=== PATIENT | male | born 1990 | race Hispanic/Latino ===

== ENCOUNTER 2017-03-02 13:41 | Inpatient (IN) | payer MEDICAID ==
[~2017-03-02] VITALS: Ht 165.1 cm; Wt 65.8 kg
[2017-03-02] MEDS ORDERED: Famotidine 20 MG/ 2ML VIAL IVP ONE ×2 (13:45)
[2017-03-02] MEDS ORDERED: LORazepam Inj 2mg/ml 1ml IV ONE (14:00)
--- NOTE | 2017-03-02 14:00 | Emergency Room Report ---
History of Present Illness General Chief Complaint: Gastrointestinal Bleed Source: Patient, EMS Present Illness HPI Patient is a 26-year-old male who presented after increased emesis the patient was recently drinking heavy alcohol. He reports vomiting blood. Patient prior history of alcohol abuse. The patient stated that he had been having some bright red blood. As noted be hypotensive by EMS. The patient started on IV fluids. Allergies: Coded Allergies: No Known Allergies (Unverified , 03/02/17) Nursing Documentation-[facility] Past Medical History: No History, Except For History Of Psychiatric Problem: Yes - etoh abuse Review of Systems All Other Systems: negative except mentioned in HPI Physical Exam Vital Signs Date Time Temp Pulse Resp B/P Pulse Ox O2 Delivery O2 Flow Rate FiO2 03/02/17 13:35 98.2 108 20 88/63 98 Room Air Sp02 EP Interpretation: reviewed, normal General Appearance: normal inspection, alert, moderate distress Head: atraumatic ENT: normal ENT inspection, hearing grossly normal, normal voice Neck: normal inspection, full range of motion, supple, no bony tend Respiratory: normal inspection, lungs clear, normal breath sounds, no respiratory distress, no retraction, no wheezing Cardiovascular #1: no edema, tachycardia Gastrointestinal: normal inspection, normal bowel sounds, non tender, soft, no guarding, no hernia Genitourinary: no CVA tenderness Musculoskeletal: normal inspection, back normal, normal range of motion Neurologic: normal inspection, alert, oriented x3, responsive, economic history teacher III-XII nml as tested, motor strength/tone normal, speech normal Psychiatric: normal inspection, judgement/insight normal, mood/affect normal Skin: normal inspection, normal color, no rash, other - tremor Procedures Critical Care Time Critical Care Time Patient had a critical medical condition which untreated could potentially result in life or limb threatening injury. Total critical care time excluding procedures approximately 45 minutes. Medical Decision Making Diagnostic Impression: Primary Impression: Gastrointestinal hemorrhage Additional Impression: Anemia ER Course Patient presented for reported hematemesis. The differential diagnosis included but was not limited to ulcer, diverticulosis, aortic aneurysm, arteriovenous formation, coagulopathy, cancer among others. Because of complexity of patient' s case laboratory testing and imaging studies were ordered.The patient was given IV Protonix as well as Pepcid. The patient noted to have large amount melanotic stool. Initial hemoglobin was noted to be markedly anemic.The patient is given Ativan for presumed alcohol withdrawal.The patient was discussed with Dr. Burton for inpatient management of GI bleeding. The patient was consented and crossmatch for blood. Patient was given IV fluids as well as blood. Labs Test 03/02/17 14:00 White Blood Count 11.0 K/UL (4.8-10.8) Red Blood Count 2.54 M/UL (4.70-6.10) Hemoglobin 7.9 G/DL (14.2-18.0) Hematocrit 23.8 % (42.0-52.0) Mean Corpuscular Volume 94 FL (80-99) Mean Corpuscular Hemoglobin 31.0 PG (27.0-31.0) Mean Corpuscular Hemoglobin Concent 33.0 G/DL (32.0-36.0) Red Cell Distribution Width 12.1 % (11.6-14.8) Platelet Count 248 K/UL (150-450) Mean Platelet Volume 6.5 FL (6.5-10.1) Neutrophils (%) (Auto) % (45.0-75.0) Lymphocytes (%) (Auto) % (20.0-45.0) Monocytes (%) (Auto) % (1.0-10.0) Eosinophils (%) (Auto) % (0.0-3.0) Basophils (%) (Auto) % (0.0-2.0) Prothrombin Time 10.5 SEC (9.30-11.50) Prothromb Time International Ratio 1.0 (0.9-1.1) Activated Partial Thromboplast Time 20 SEC (23-33) Sodium Level 136 mEQ/L (135-145) Potassium Level 3.5 mEQ/L (3.4-4.9) Chloride Level 99 mEQ/L (98-107) Carbon Dioxide Level 27 mEQ/L (20-30) Anion Gap 10 (5-15) Blood Urea Nitrogen 32 mg/dL (7-23) Creatinine 0.7 mg/dL (0.7-1.2) Estimat Glomerular Filtration Rate > 60 mL/min (>60) Glucose Level 163 mg/dL (74-106) Calcium Level 8.4 mg/dL (8.6-10.2) Total Bilirubin 0.7 mg/dL (0.0-1.2) Aspartate Amino Transf (AST/SGOT) 18 U/L (5-40) Alanine Aminotransferase (ALT/SGPT) 29 U/L (3-41) Alkaline Phosphatase 46 U/L (40-129) Total Protein 6.0 g/dL (6.6-8.7) Albumin 4.0 g/dL (3.5-5.2) Globulin 2.0 g/dL Albumin/Globulin Ratio 2.0 (1.0-2.7) Lipase 13 U/L (< 60) Serum Alcohol < 10 mg/dL EKG Diagnostic Results Rate: normal Rhythm: NSR ST Segments: no acute changes Rhythm Strip Diag. Results EP Interpretation: yes Rhythm: NSR, no PVC's, no ectopy Last Vital Signs Date Time Temp Pulse Resp B/P Pulse Ox O2 Delivery O2 Flow Rate FiO2 03/02/17 13:35 98.2 108 20 88/63 98 Room Air Status: unchanged Disposition: ADMITTED INPATIENT Condition: Jamshid Llamas Mar 02, 2017 14:00
[2017-03-02 14:17] LABS: MEAN CORPUSCULAR VOLUME 94 FL (80-99); MEAN PLATELET VOLUME 6.5 FL (6.5-10.1); PLATELET COUNT 248 K/UL (150-450); RED BLOOD COUNT 2.54 M/UL (4.70-6.10); RED CELL DISTRIBUTION WIDTH 12.1 % (11.6-14.8)
[2017-03-02 14:28] LABS: ALCOHOL < 10 mg/dL; LIPASE 13 U/L (< 60)
[2017-03-02 14:29] LABS: ALANINE AMINOTRANSFERASE 29 U/L (3-41); ANION GAP 10 (5-15); ASPARTATE AMINO TRANSFERASE 18 U/L (5-40); CALCIUM 8.4 mg/dL (8.6-10.2); CARBON DIOXIDE 27 mEQ/L (20-30); CHLORIDE 99 mEQ/L (98-107); CREATININE 0.7 mg/dL (0.7-1.2); GLOMERULAR FILTRATION RATE > 60 mL/min (>60); HEMOLYSIS 5; POTASSIUM 3.5 mEQ/L (3.4-4.9); SODIUM 136 mEQ/L (135-145)
[2017-03-02 14:32] LABS: PROTHROMBIN TIME 10.5 SEC (9.30-11.50)
[2017-03-02] MEDS ORDERED: Pantoprazole Inj IVP ONE (14:45)
[2017-03-02 14:51] LABS: BAND NEUTROPHILS % (MANUAL) 1 % (0-8); BASOPHILS % (MANUAL) 1 % (0-2); LYMPHOCYTES % (MANUAL) 14 % (20-45); NEUTROPHILS % (MANUAL) 80 % (45-75); TOTAL CELLS COUNTED 100
[2017-03-02 14:52] LABS: EOSINOPHILS % (MANUAL) 0 % (0-3); PLATELET ESTIMATE ADEQUATE; PLATELET MORPHOLOGY NORMAL
[2017-03-02 14:56] LABS: STOMATOCYTES OCCASIONAL
[2017-03-02 14:57] LABS: HYPOCHROMASIA 1+
[2017-03-02] MEDS ORDERED: Nitroglycerin Subl 0.4mg tab (Bottle Of 25) SL PRN (15:30)
[2017-03-02] MEDS ORDERED: Morphine Sulfate 2mg/ml Inj IVP PRN (15:30)
[2017-03-02] MEDS ORDERED: Mylanta II UD 30ml ORAL PRN (15:30)
[2017-03-02] MEDS ORDERED: Miralax 17gm pkt ORAL PRN (15:30)
[2017-03-02] MEDS ORDERED: Phytonadione 10 MG in D5W 55 ML IVPB ONE (16:00)
[2017-03-02 16:07] VITALS: BP 101/58
[2017-03-02 16:30] VITALS: BP 111/60
[2017-03-02] MEDS: D5NS 1,000 ML IV SCH (16:45)
[2017-03-02 18:34] LABS: MEAN CORPUSCULAR HEMOGLOBIN 32.5 PG (27.0-31.0); MEAN CORPUSCULAR HGB CONC 34.3 G/DL (32.0-36.0); MEAN CORPUSCULAR VOLUME 95 FL (80-99); MEAN PLATELET VOLUME 6.8 FL (6.5-10.1); PLATELET COUNT 208 K/UL (150-450); RED BLOOD COUNT 2.13 M/UL (4.70-6.10); RED CELL DISTRIBUTION WIDTH 12.2 % (11.6-14.8); WHITE BLOOD COUNT 8.2 K/UL (4.8-10.8)
[2017-03-02 20:00] VITALS: BP 101/69
[2017-03-02 20:19] LABS: BAND NEUTROPHILS % (MANUAL) 1 % (0-8); LYMPHOCYTES % (MANUAL) 8 % (20-45); NEUTROPHILS % (MANUAL) 90 % (45-75); NUCLEATED RED BLOOD CELLS 3 /100 WBC; TOTAL CELLS COUNTED 100
[2017-03-02 20:24] LABS: BASOPHILS % (MANUAL) 0 % (0-2); EOSINOPHILS % (MANUAL) 0 % (0-3); PLATELET ESTIMATE ADEQUATE
[2017-03-02 20:25] LABS: PLATELET MORPHOLOGY NORMAL
[2017-03-03] VITALS (11 sets, daily range): BP systolic 96–113; BP diastolic 48–74
[2017-03-03] MEDS: D5NS 1,000 ML IV SCH ×3 (03:02→23:14)
[2017-03-03 06:33] LABS: BASOPHILS % (AUTO) 0.7 % (0.0-2.0); EOSINOPHILS % (AUTO) 1.1 % (0.0-3.0); LYMPHOCYTES % (AUTO) 24.3 % (20.0-45.0); MEAN CORPUSCULAR HEMOGLOBIN 32.5 PG (27.0-31.0); MEAN CORPUSCULAR HGB CONC 34.5 G/DL (32.0-36.0); MEAN CORPUSCULAR VOLUME 94 FL (80-99); MEAN PLATELET VOLUME 6.5 FL (6.5-10.1); MONOCYTES % (AUTO) 9.6 % (1.0-10.0); NEUTROPHILS % (AUTO) 64.3 % (45.0-75.0); PLATELET COUNT 176 K/UL (150-450); RED BLOOD COUNT 2.93 M/UL (4.70-6.10); RED CELL DISTRIBUTION WIDTH 12.3 % (11.6-14.8); WHITE BLOOD COUNT 6.5 K/UL (4.8-10.8)
[2017-03-03 06:43] LABS: PROTHROMBIN TIME 10.1 SEC (9.30-11.50)
[2017-03-03 06:55] LABS: ALANINE AMINOTRANSFERASE 24 U/L (3-41); ALBUMIN/GLOBULIN RATIO 1.9 (1.0-2.7); AMYLASE 36 U/L (10-110); ANION GAP 7 (5-15); ASPARTATE AMINO TRANSFERASE 26 U/L (5-40); CALCIUM 8.3 mg/dL (8.6-10.2); CARBON DIOXIDE 27 mEQ/L (20-30); CHLORIDE 106 mEQ/L (98-107); CREATININE 0.6 mg/dL (0.7-1.2); GLOMERULAR FILTRATION RATE > 60 mL/min (>60); HEMOLYSIS 6; LIPASE 28 U/L (< 60); POTASSIUM 3.8 mEQ/L (3.4-4.9); SODIUM 140 mEQ/L (135-145); TOTAL PROTEIN 5.3 g/dL (6.6-8.7)
[2017-03-03] MEDS ORDERED: LORazepam Inj 2mg/ml 1ml IV PRN (08:15)
[2017-03-03] MEDS ORDERED: chlordiazePOXIDE 25mg Cap ORAL PRN (11:45)
--- NOTE | 2017-03-03 11:54 | History & Physical ---
History and Physical History & Physicial Kalin Burton MD Mar 03, 2017 11:54
[2017-03-03] MEDS ORDERED: NS 550ML IV ONE (12:10)
--- NOTE | 2017-03-03 12:25 | Pre-Procedure Note/Attestation ---
Pre-Procedure Note/Attestation Complete Prior to Procedure Planned Procedure: not applicable Procedure Narrative: egd Indications for Procedure Pre-Operative Diagnosis: gib Attestation I attest that I discussed the nature of the procedure; its benefits; risks and complications; and alternatives (and the risks and benefits of such alternatives ), prior to the procedure, with the patient (or the patient's legal construction sales representative). I attest that, if there was a reasonable possibility of needing a blood transfusion, the patient (or the patient's legal construction sales representative) was given the [facility] standardized written summary, pursuant to the Dany Alberto Blood Safety Act ([place] Health and Safety Code # 1645, as amended). I attest that I re-evaluated the patient just prior to the surgery and that there has been no change in the patient's H&P, except as documented below: WEST PORTER Mar 03, 2017 12:25
[2017-03-03] MEDS ORDERED: Lidocaine 1% MPF 10mg/ml 5ml ONE (12:30)
[2017-03-03] MEDS ORDERED: Propofol 10mg/ml 20ml IV ONE (12:30)
--- NOTE | 2017-03-03 12:48 | Endoscopy Procedure Note ---
Endoscopy Procedure Note Indication for Procedure: gib Procedures Performed: EGD Operative Findings/Diagnosis: deulafoy Specimen: yes Pt Tolerated Procedure Well: Yes Estimated Blood Loss: none Anesthesiologist: charley Anesthesia: MAC Implant(s) used?: No 50 yrs or older w/o bx or poly: Not Applicable 10yrs. F/U not recommended: Not Applicable WEST PORTER Mar 03, 2017 12:48
--- NOTE | 2017-03-03 12:50 | Anethesia Preoperative Eval ---
Anesthesia Pre-op PMH/ROS General Date of Evaluation: Mar 03, 2017 Time of Evaluation: 12:20 Anesthesiologist: deepali ASA Score: ASA 2 Mallampati Score Class I : Soft palate, uvula, fauces, pillars visible Class II: Soft palate, uvula, fauces visible Class III: Soft palate, base of uvula visible Class IV: Only hard plate visible Mallampati Classification: Class II Surgeon: asuncion Diagnosis: gibleed Surgical Procedure: egd Anesthesia History: none Social History: alcohol use, drug use - methamphetamine Family History: no anesthesia problems Allergies: Coded Allergies: No Known Allergies (Unverified , 03/02/17) Medications: see eMAR Anesthesia Pre-op Phys. Exam Physician Exam Last Vital Signs Date Time Temp Pulse Resp B/P Pulse Ox O2 Delivery O2 Flow Rate FiO2 03/03/17 11:12 87 03/03/17 08:00 97.2 18 104/74 100 Room Air Constitutional: NAD Neurologic: CN 2-12 intact Cardiovascular: RRR Respiratory: CTA Gastrointestinal: S/NT/ND Airway Exam Mallampati Score: Class II MO: full Neck: supple TMD: 3fb ROM: full Teeth: missing Anesthesia Pre-op A/P Labs Hematology Test 03/02/17 14:00 03/02/17 17:35 03/03/17 05:00 White Blood Count 11.0 K/UL (4.8-10.8) H 8.2 K/UL (4.8-10.8) 6.5 K/UL (4.8-10.8) Red Blood Count 2.54 M/UL (4.70-6.10) L 2.13 M/UL (4.70-6.10) L 2.93 M/UL (4.70-6.10) L Hemoglobin 7.9 G/DL (14.2-18.0) L 6.9 G/DL (14.2-18.0) *L 9.5 G/DL (14.2-18.0) #L Hematocrit 23.8 % (42.0-52.0) L 20.2 % (42.0-52.0) L 27.5 % (42.0-52.0) #L Mean Corpuscular Volume 94 FL (80-99) 95 FL (80-99) 94 FL (80-99) Mean Corpuscular Hemoglobin 31.0 PG (27.0-31.0) 32.5 PG (27.0-31.0) H 32.5 PG (27.0-31.0) H Mean Corpuscular Hemoglobin Concent 33.0 G/DL (32.0-36.0) 34.3 G/DL (32.0-36.0) 34.5 G/DL (32.0-36.0) Red Cell Distribution Width 12.1 % (11.6-14.8) 12.2 % (11.6-14.8) 12.3 % (11.6-14.8) Platelet Count 248 K/UL (150-450) 208 K/UL (150-450) 176 K/UL (150-450) Mean Platelet Volume 6.5 FL (6.5-10.1) 6.8 FL (6.5-10.1) 6.5 FL (6.5-10.1) Neutrophils (%) (Auto) % (45.0-75.0) % (45.0-75.0) 64.3 % (45.0-75.0) Lymphocytes (%) (Auto) % (20.0-45.0) % (20.0-45.0) 24.3 % (20.0-45.0) Monocytes (%) (Auto) % (1.0-10.0) % (1.0-10.0) 9.6 % (1.0-10.0) Eosinophils (%) (Auto) % (0.0-3.0) % (0.0-3.0) 1.1 % (0.0-3.0) Basophils (%) (Auto) % (0.0-2.0) % (0.0-2.0) 0.7 % (0.0-2.0) Differential Total Cells Counted 100 100 Neutrophils % (Manual) 80 % (45-75) H 90 % (45-75) H Lymphocytes % (Manual) 14 % (20-45) L 8 % (20-45) L Monocytes % (Manual) 4 % (1-10) 1 % (1-10) Eosinophils % (Manual) 0 % (0-3) 0 % (0-3) Basophils % (Manual) 1 % (0-2) 0 % (0-2) Band Neutrophils 1 % (0-8) 1 % (0-8) Platelet Estimate Adequate Adequate Platelet Morphology Normal Normal Hypochromasia 1+ Stomatocytes Occasional Nucleated Red Blood Cells 3 /100 WBC Red Blood Cell Morphology Normal Coagulation Test 03/02/17 14:00 03/03/17 05:00 Prothrombin Time 10.5 SEC (9.30-11.50) 10.1 SEC (9.30-11.50) Prothromb Time International Ratio 1.0 (0.9-1.1) 1.0 (0.9-1.1) Activated Partial Thromboplast Time 20 SEC (23-33) L 24 SEC (23-33) Chemistry Test 03/02/17 14:00 03/03/17 05:00 Sodium Level 136 mEQ/L (135-145) 140 mEQ/L (135-145) Potassium Level 3.5 mEQ/L (3.4-4.9) 3.8 mEQ/L (3.4-4.9) Chloride Level 99 mEQ/L (98-107) 106 mEQ/L (98-107) Carbon Dioxide Level 27 mEQ/L (20-30) 27 mEQ/L (20-30) Anion Gap 10 (5-15) 7 (5-15) Blood Urea Nitrogen 32 mg/dL (7-23) H 13 mg/dL (7-23) Creatinine 0.7 mg/dL (0.7-1.2) 0.6 mg/dL (0.7-1.2) L Estimat Glomerular Filtration Rate > 60 mL/min (>60) > 60 mL/min (>60) Glucose Level 163 mg/dL (74-106) H 116 mg/dL (74-106) H Calcium Level 8.4 mg/dL (8.6-10.2) L 8.3 mg/dL (8.6-10.2) L Total Bilirubin 0.7 mg/dL (0.0-1.2) 0.7 mg/dL (0.0-1.2) Aspartate Amino Transf (AST/SGOT) 18 U/L (5-40) 26 U/L (5-40) Alanine Aminotransferase (ALT/SGPT) 29 U/L (3-41) 24 U/L (3-41) Alkaline Phosphatase 46 U/L (40-129) 39 U/L (40-129) L Total Protein 6.0 g/dL (6.6-8.7) L 5.3 g/dL (6.6-8.7) L Albumin 4.0 g/dL (3.5-5.2) 3.5 g/dL (3.5-5.2) Globulin 2.0 g/dL 1.8 g/dL Albumin/Globulin Ratio 2.0 (1.0-2.7) 1.9 (1.0-2.7) Lipase 13 U/L (< 60) 28 U/L (< 60) Amylase Level 36 U/L (10-110) Risk Assessment & Plan Assessment: asa2 Plan: mac Status Change Before Surgery: No Pre-Antibiotics Drug: MINE Lopez Mar 03, 2017 12:50
[2017-03-03] MEDS ORDERED: Midazolam 2mg/2ml Inj IVP PRN (13:00)
[2017-03-03] MEDS ORDERED: Atropine Inj 1mg/10ml Syr IV PRN (13:00)
[2017-03-03] MEDS ORDERED: DiphenhydrAMINE 50mg/ml Inj IVP PRN (13:00)
[2017-03-03] MEDS ORDERED: Hydromorphone 0.5mg/0.5ml inj IVP PRN (13:00)
--- NOTE | 2017-03-03 13:20 | Immediate Post-Op Evaluation ---
Immediate Post-Op Evalulation Immediate Post-Op Evalulation Procedure: egd Date of Evaluation: Mar 03, 2017 Time of Evaluation: 13:18 IV Fluids: 500ml 0.9ns Blood Products: none Estimated Blood Loss: negligible Blood Pressure Systolic: 93 Blood Pressure Diastolic: 60 Pulse Rate: 75 Respiratory Rate: 18 O2 Sat by Pulse Oximetry: 100 Temperature (Fahrenheit): 98.6 Pain Score (1-10): 0 Nausea: No Complications none Patient Status: patent Drug: MINE Lopez Mar 03, 2017 13:20
--- NOTE | 2017-03-03 13:22 | 48 Hour Post Anesthesia Eval ---
Post Anesthesia Evaluation Procedure: egd Date of Evaluation: Mar 03, 2017 Time of Evaluation: 13:20 Blood Pressure Systolic: 93 Pulse Rate: 66 Respiratory Rate: 18 Temperature (Fahrenheit): 98.6 Nausea: No Pain Intensity: 0 Hydration Status: adequate Cardiopulmonary Status: stable Post-Anesthesia Complications: none Follow-up care needed: N/A MINE GARCIA Mar 03, 2017 13:22
[2017-03-03] MEDS: Folic Acid 1 MG, Magnesium Sulfate 2,000 MG, Multivitamin - 12 Injection 10 ML in NS w/... IV SCH (13:52)
[2017-03-03] MEDS: Thiamine 100mg in D5W 55ml IVPB SCH (14:01)
--- NOTE | 2017-03-03 16:15 | History and Physical Report ---
DATE OF ADMISSION: 03/02/2017 CHIEF COMPLAINT: Nausea and vomiting. HISTORY OF PRESENT ILLNESS: This is a 26-year-old gentleman with past medical history of alcohol abuse, who has presented to the emergency room complained about increased emesis. The patient reported vomiting blood and bright red blood, and shortly after initial evaluation in the emergency room, the patient was noted to have hemoglobin of 7.9, repeat one was 6.9, and subsequently, the patient was admitted to the hospital for severe anemia due to the acute GI bleed. PAST MEDICAL HISTORY/PAST SURGICAL HISTORY: As above. History of alcohol abuse. MEDICATIONS AT HOME: None. ALLERGIES: No known drug allergies. SOCIAL HISTORY: No smoking. Alcohol abuse. He likes . He denies any substance abuse. FAMILY HISTORY: Noncontributory. REVIEW OF SYSTEMS: Mostly as above. PHYSICAL EXAMINATION: VITAL SIGNS: Vitals on admission from the ER is significant for temperature of 98.2, pulse of 108, respirations 20, and blood pressure 88/63. GENERAL: The patient is awake, responsive, and not in acute distress. HEAD AND NECK: Pupils are equal and reactive to light. Extraocular movements are intact. NECK: Supple. No JVD. LUNGS: Good air entry. No wheezing or rales. Poor inspiratory effort. HEART: S1 and S2. Tachycardic. No murmurs or gallops. ABDOMEN: Soft. Epigastric tenderness. No rebound tenderness. No fluid shift. NEUROLOGIC: Cranial nerves II through XII are grossly normal. The patient is moving all extremities. LABORATORY DATA: Laboratory on admission from the ER, WBC of 11, hemoglobin of 7.9, hematocrit of 28, and platelets 248,000. Repeat hemoglobin is 6.9. Sodium 136, potassium 3.5, chloride 99, bicarbonate 27, BUN 32, creatinine 0.7, glucose is 163, and calcium is 8.4. AST of 18 and ALT of 29. Lipase is 13. PT of 10, INR 1, and PTT of 20. Alcohol level is less than 10. ASSESSMENT: 1. Acute gastrointestinal bleed. 2. Severe anemia most likely secondary to gastrointestinal bleed. 3. Alcoholism. PLAN: Admit the patient to [facility]. We will follow up with the laboratory. Type and cross transfuse one unit of blood. Follow up with Dr. Bledsoe, consultation for endoscopy. We will monitor CBC and the patient low risk for DVT. CODE STATUS: Full Code. Kalin Burton M.D. DR: NICOLLE JOB#: [id number] CC:
--- NOTE | 2017-03-03 16:45 | Procedure Note ---
DATE OF PROCEDURE: 03/03/2017 PROCEDURE: Upper endoscopy with hemostasis and biopsy. SURGEON: Albaro Bledsoe M.D. ANESTHESIOLOGIST: Trinidad Baca M.D. INSTRUMENT: Olympus adult flexible upper endoscope. INDICATION: Upper GI bleeding. REASON FOR PROCEDURE: The procedure, risks, benefits, and possible consequences, including hemorrhage, aspiration, perforation and infection, and alternative treatments, were explained to the patient/legal guardian by Dr. Albaro Bledsoe and the patient/legal guardian understood and accepted these risks. PROCEDURE: After informed consent was obtained and the patient was adequately sedated, Olympus upper endoscope was advanced from the mouth into the second portion of duodenum and retroflexion was performed in the stomach. The patient has diffuse gastritis. Random biopsy from antrum was obtained to rule out H. pylori infection. The patient had evidence of the visible vessel right below the GE junction, this is most likely a Dieulafoy's lesion. There was actually losing blood. We placed a clip right at the Dieulafoy lesion successfully. The patient tolerated the procedure well without any complication. SUMMARY FINDINGS: 1. Gastritis status post biopsy. 2. Upper gastrointestinal bleeding, most probably from a Dieulafoy lesion right below the gastroesophageal junction status post hemoclip x1. RECOMMENDATIONS: The patient to be kept NPO for tonight. Add Protonix 40 mg IV b.i.d. Monitor hemoglobin and hematocrit and transfuse as needed. If the patient's hemoglobin and hematocrit is stable tomorrow, I will start diet and advance as tolerated and discharge possibly if the patient has shown no recurrent bleeding. I want to thank, Dr. Kalin Burton, for this kind referral. Albaro Bledsoe M.D. DR: SHIELA JOB#: [id number] CC: Kalin Burton M.D.
[2017-03-03] MEDS: Pantoprazole Inj IV SCH (22:30)
[2017-03-04] VITALS: BP 116/70
[2017-03-04 04:00] VITALS: BP 118/70
[2017-03-04 06:47] LABS: MEAN CORPUSCULAR HGB CONC 33.8 G/DL (32.0-36.0); MEAN CORPUSCULAR VOLUME 95 FL (80-99); MEAN PLATELET VOLUME 6.5 FL (6.5-10.1); PLATELET COUNT 162 K/UL (150-450); RED BLOOD COUNT 2.03 M/UL (4.70-6.10); RED CELL DISTRIBUTION WIDTH 12.3 % (11.6-14.8); WHITE BLOOD COUNT 4.9 K/UL (4.8-10.8)
[2017-03-04 06:50] LABS: ALANINE AMINOTRANSFERASE 20 U/L (3-41); ALBUMIN/GLOBULIN RATIO 1.6 (1.0-2.7); ANION GAP 7 (5-15); ASPARTATE AMINO TRANSFERASE 25 U/L (5-40); CALCIUM 7.6 mg/dL (8.6-10.2); CARBON DIOXIDE 25 mEQ/L (20-30); CHLORIDE 110 mEQ/L (98-107); CREATININE 0.5 mg/dL (0.7-1.2); GLOMERULAR FILTRATION RATE > 60 mL/min (>60); HEMOLYSIS 0; MAGNESIUM 1.8 mg/dL (1.7-2.5); PHOSPHORUS 2.6 mg/dL (2.5-4.8); POTASSIUM 3.9 mEQ/L (3.4-4.9); SODIUM 142 mEQ/L (135-145); TOTAL PROTEIN 4.5 g/dL (6.6-8.7)
[2017-03-04 08:00] VITALS: BP 91/53
--- NOTE | 2017-03-04 08:44 | General Progress Note ---
Assessment/Plan Problem List: (1) Anemia ICD Codes: D64.9 - Anemia, unspecified SNOMED: 205811742 (2) Gastrointestinal hemorrhage ICD Codes: K92.2 - Gastrointestinal hemorrhage, unspecified SNOMED: 29008114 Assessment/Plan repeat cbc and transfuse if needed ppi add carafate Subjective ROS Limited/Unobtainable: Yes Allergies: Coded Allergies: No Known Allergies (Unverified , 03/02/17) Subjective wants to eat Objective Last 24 Hour Vital Signs Date Time Temp Pulse Resp B/P Pulse Ox O2 Delivery O2 Flow Rate FiO2 03/04/17 04:00 98.5 72 20 118/70 98 Room Air 03/04/17 04:00 76 03/04/17 00:00 98.0 70 20 116/70 97 Room Air 03/03/17 23:48 70 03/03/17 20:00 98.2 65 20 110/65 96 Room Air 03/03/17 19:39 97 03/03/17 16:00 97.0 73 17 109/65 98 Room Air 03/03/17 15:54 97 03/03/17 13:30 98.5 78 15 98/50 98 Room Air 03/03/17 13:22 66 18 03/03/17 13:20 84 16 97/48 98 Room Air 03/03/17 13:20 75 18 100 03/03/17 13:10 69 19 100/52 100 Room Air 03/03/17 13:05 74 20 96/57 99 Room Air 03/03/17 13:03 98.6 75 18 99/58 100 Room Air 03/03/17 12:00 97.8 81 18 102/55 100 Room Air 03/03/17 11:12 87 Intake and Output 03/03/17 03/04/17 19:00 07:00 Intake Total 1350 ml 1175 ml Output Total 0 ml Balance 1350 ml 1175 ml Intake IV Total 1350 ml 1175 ml Output Estimated Blood Loss 0 ml # Voids 3 3 # Bowel Movements 2 Laboratory Tests 03/04/17 04:50: White Blood Count 4.9, Red Blood Count 2.03L, Hemoglobin 6.5#*L, Hematocrit 19.2 #L, Mean Corpuscular Volume 95, Mean Corpuscular Hemoglobin 32.0H, Mean Corpuscular Hemoglobin Concent 33.8, Red Cell Distribution Width 12.3, Platelet Count 162, Mean Platelet Volume 6.5, Neutrophils (%) (Auto) , Lymphocytes (%) ( Auto) , Monocytes (%) (Auto) , Eosinophils (%) (Auto) , Basophils (%) (Auto) , Neutrophils % (Manual) [Pending], Lymphocytes % (Manual) [Pending], Platelet Estimate [Pending], Platelet Morphology [Pending], Sodium Level 142, Potassium Level 3.9, Chloride Level 110H, Carbon Dioxide Level 25, Anion Gap 7, Blood Urea Nitrogen 14, Creatinine 0.5L, Estimat Glomerular Filtration Rate > 60, Glucose Level 99, Calcium Level 7.6L, Phosphorus Level 2.6, Magnesium Level 1.8 , Total Bilirubin 0.6, Aspartate Amino Transf (AST/SGOT) 25, Alanine Aminotransferase (ALT/SGPT) 20, Alkaline Phosphatase 34L, Total Protein 4.5L, Albumin 2.8L, Globulin 1.7, Albumin/Globulin Ratio 1.6 Height (Feet): 5 Height (Inches): 5.00 Weight (Pounds): 145 General Appearance: alert EENT: normal ENT inspection Neck: supple Cardiovascular: normal rate Respiratory/Chest: lungs clear Abdomen: normal bowel sounds, non tender, soft Extremities: non-tender WEST PORTER Mar 04, 2017 08:44
[2017-03-04] MEDS ORDERED: Sucralfate 1gm tab ORAL SCH ×2 (09:00→11:00)
[2017-03-04 09:02] LABS: OTHERS PATHOLOGIST COMMENT
[2017-03-04] MEDS: D5NS 1,000 ML IV SCH ×3 (09:02→23:11)
[2017-03-04] MEDS: Pantoprazole Inj IV SCH ×2 (09:04→20:29)
[2017-03-04 09:43] LABS: MEAN CORPUSCULAR HEMOGLOBIN 31.3 PG (27.0-31.0); MEAN CORPUSCULAR HGB CONC 33.5 G/DL (32.0-36.0); MEAN CORPUSCULAR VOLUME 94 FL (80-99); MEAN PLATELET VOLUME 6.2 FL (6.5-10.1); PLATELET COUNT 204 K/UL (150-450); RED BLOOD COUNT 2.26 M/UL (4.70-6.10); RED CELL DISTRIBUTION WIDTH 12.2 % (11.6-14.8); WHITE BLOOD COUNT 5.3 K/UL (4.8-10.8)
[2017-03-04] MEDS ORDERED: Tubing Blood Filter IV ONE ×2 (11:16→16:11)
[2017-03-04] MEDS ORDERED: NS 275ml ONE ×2 (11:16→16:11)
[2017-03-04] MEDS ORDERED: D5NS 1000ml IV ONE (11:16)
[2017-03-04 11:29] LABS: BAND NEUTROPHILS % (MANUAL) 0 % (0-8); BASOPHILS % (MANUAL) 0 % (0-2); EOSINOPHILS % (MANUAL) 2 % (0-3); HYPOCHROMASIA 1+; LYMPHOCYTES % (MANUAL) 36 % (20-45); NEUTROPHILS % (MANUAL) 53 % (45-75); PLATELET ESTIMATE ADEQUATE; PLATELET MORPHOLOGY NORMAL; TOTAL CELLS COUNTED 100
[2017-03-04 11:30] LABS: BAND NEUTROPHILS % (MANUAL) 0 % (0-8); BASOPHILS % (MANUAL) 0 % (0-2); EOSINOPHILS % (MANUAL) 0 % (0-3); HYPOCHROMASIA 1+; LYMPHOCYTES % (MANUAL) 31 % (20-45); NEUTROPHILS % (MANUAL) 61 % (45-75); PLATELET ESTIMATE ADEQUATE; PLATELET MORPHOLOGY NORMAL; TOTAL CELLS COUNTED 100
[2017-03-04 12:00] VITALS: BP 123/63
--- NOTE | 2017-03-04 12:53 | Diagnostic Imaging Report ---
APPROVED REPORT CPT Code: 61810 Present Symptoms Comments: R/O DVT BILATERAL: Imaging reveals a patent deep venous system bilaterally. There is no evidence of thrombus within the femoral, popliteal or tibial segments. The greater saphenous veins are also within normal limits. Doppler indicates normal spontaneous flow within these segments.
[2017-03-04] MEDS: Folic Acid 1 MG, Magnesium Sulfate 2,000 MG, Multivitamin - 12 Injection 10 ML in NS w/... IV SCH (13:52)
[2017-03-04] MEDS: Thiamine 100mg in D5W 55ml IVPB SCH (13:52)
[2017-03-04] MEDS ORDERED: Nitroglycerin Subl 0.4mg tab (Bottle Of 25) SL PRN (14:00)
[2017-03-04] MEDS ORDERED: chlordiazePOXIDE 25mg Cap ORAL PRN (14:30)
[2017-03-04] MEDS ORDERED: Morphine Sulfate 2mg/ml Inj IVP PRN (15:00)
[2017-03-04] MEDS ORDERED: LORazepam Inj 2mg/ml 1ml IV PRN (15:00)
[2017-03-04] MEDS ORDERED: Mylanta II UD 30ml ORAL PRN (15:30)
[2017-03-04 16:13] VITALS: BP 112/61
[2017-03-04] MEDS: Sucralfate 1gm tab ORAL SCH ×2 (16:52→20:29)
[2017-03-04 20:00] VITALS: BP 115/63
--- NOTE | 2017-03-04 20:08 | Internal Med Progress Note ---
Subjective Physician Name Kalin Burton Attending Physician Kalin Burton MD Current Medications Medications (Trade) Dose Ordered Sig/Jorgito Route PRN Reason Start Time Stop Time Status Last Admin Dose Admin Acetaminophen (Tylenol) 650 mg Q4H PRN ORAL fever 03/04/17 15:30 04/03/17 15:29 Al Hydroxide/Mg Hydroxide (Mylanta II) 30 ml Q6H PRN ORAL dyspepsia 03/04/17 15:30 04/03/17 15:29 Chlordiazepoxide (Librium) 25 mg Q6H PRN ORAL Agitation 03/04/17 14:30 03/11/17 14:29 Dextrose (Dextrose 50%) STAT PRN IV Hypoglycemia 03/04/17 15:00 04/03/17 14:59 Dextrose/Sodium Chloride 1,000 ml @ 100 mls/hr Q10H IV 03/04/17 14:30 04/03/17 14:29 Diphenhydramine HCl (Benadryl) 25 mg Q6H PRN ORAL Itching/Pruritis 03/04/17 15:00 04/03/17 14:59 Folic Acid 1 mg/ Magnesium Sulfate 2000 mg/ Multivitamins 10 ml/Sodium Chloride 1,014.2 ml @ 125 mls/ hr Q24H IV 03/03/17 13:00 03/04/17 23:59 03/04/17 13:52 Folic Acid 1 mg/ Magnesium Sulfate 2000 mg/ Multivitamins 10 ml/Sodium Chloride 1,014.2 ml @ 125 mls/ hr Q24H IV 03/05/17 13:00 04/04/17 12:59 Lorazepam (Ativan 2mg/ml 1ml) 1 mg Q4H PRN IV For Anxiety 03/04/17 15:00 03/11/17 14:59 Morphine Sulfate (Morphine Sulfate) 2 mg Q4H PRN IVP severe Pain (Pain Scale 7-10) 03/04/17 15:00 03/11/17 14:59 Nitroglycerin (Ntg) 0.4 mg Q5M X 3 DOSES PRN SL Prn Chest Pain 03/04/17 14:00 04/03/17 13:59 Ondansetron HCl (Zofran) 4 mg Q6H PRN IVP Nausea & Vomiting 03/04/17 15:00 04/03/17 14:59 Pantoprazole (Protonix) 40 mg EVERY 12 HOURS IV 03/04/17 21:00 04/03/17 20:59 Polyethylene Glycol (Miralax) 17 gm HSPRN PRN ORAL Constipation 03/04/17 21:00 04/03/17 20:59 Sucralfate (Carafate) 1 gm 0600,1100,1600,2000 ORAL 03/04/17 16:00 04/03/17 15:59 03/04/17 16:52 Temazepam (Restoril) 15 mg HSPRN PRN ORAL Insomnia 03/04/17 21:00 03/11/17 20:59 Thiamine HCl/ Dextrose (Vitamin B1/D5W) 56 ml @ 112 mls/hr Q24H IVPB 03/05/17 13:00 04/04/17 12:59 Allergies: Coded Allergies: No Known Allergies (Unverified , 03/02/17) Subjective awake, alert, responsive, dark stool, RBC: 7.1 Objective Last Vital Signs Date Time Temp Pulse Resp B/P Pulse Ox O2 Delivery O2 Flow Rate FiO2 03/04/17 16:13 97.5 71 20 112/61 100 Room Air Laboratory Tests Test 03/04/17 04:50 03/04/17 09:25 White Blood Count 4.9 K/UL (4.8-10.8) 5.3 K/UL (4.8-10.8) Red Blood Count 2.03 M/UL (4.70-6.10) L 2.26 M/UL (4.70-6.10) L Hemoglobin 6.5 G/DL (14.2-18.0) 7.1 G/DL (14.2-18.0) L Hematocrit 19.2 % (42.0-52.0) #L 21.2 % (42.0-52.0) L Mean Corpuscular Volume 95 FL (80-99) 94 FL (80-99) Mean Corpuscular Hemoglobin 32.0 PG (27.0-31.0) H 31.3 PG (27.0-31.0) H Mean Corpuscular Hemoglobin Concent 33.8 G/DL (32.0-36.0) 33.5 G/DL (32.0-36.0) Red Cell Distribution Width 12.3 % (11.6-14.8) 12.2 % (11.6-14.8) Platelet Count 162 K/UL (150-450) 204 K/UL (150-450) Mean Platelet Volume 6.5 FL (6.5-10.1) 6.2 FL (6.5-10.1) L Neutrophils (%) (Auto) % (45.0-75.0) % (45.0-75.0) Lymphocytes (%) (Auto) % (20.0-45.0) % (20.0-45.0) Monocytes (%) (Auto) % (1.0-10.0) % (1.0-10.0) Eosinophils (%) (Auto) % (0.0-3.0) % (0.0-3.0) Basophils (%) (Auto) % (0.0-2.0) % (0.0-2.0) Differential Total Cells Counted 100 100 Neutrophils % (Manual) 53 % (45-75) 61 % (45-75) Lymphocytes % (Manual) 36 % (20-45) 31 % (20-45) Monocytes % (Manual) 9 % (1-10) 8 % (1-10) Eosinophils % (Manual) 2 % (0-3) 0 % (0-3) Basophils % (Manual) 0 % (0-2) 0 % (0-2) Band Neutrophils 0 % (0-8) 0 % (0-8) Platelet Estimate Adequate Adequate Platelet Morphology Normal Normal Hypochromasia 1+ 1+ Sodium Level 142 mEQ/L (135-145) Potassium Level 3.9 mEQ/L (3.4-4.9) Chloride Level 110 mEQ/L (98-107) H Carbon Dioxide Level 25 mEQ/L (20-30) Anion Gap 7 (5-15) Blood Urea Nitrogen 14 mg/dL (7-23) Creatinine 0.5 mg/dL (0.7-1.2) L Estimat Glomerular Filtration Rate > 60 mL/min (>60) Glucose Level 99 mg/dL (74-106) Calcium Level 7.6 mg/dL (8.6-10.2) L Phosphorus Level 2.6 mg/dL (2.5-4.8) Magnesium Level 1.8 mg/dL (1.7-2.5) Total Bilirubin 0.6 mg/dL (0.0-1.2) Aspartate Amino Transf (AST/SGOT) 25 U/L (5-40) Alanine Aminotransferase (ALT/SGPT) 20 U/L (3-41) Alkaline Phosphatase 34 U/L (40-129) L Total Protein 4.5 g/dL (6.6-8.7) L Albumin 2.8 g/dL (3.5-5.2) L Globulin 1.7 g/dL Albumin/Globulin Ratio 1.6 (1.0-2.7) Microbiology Date/Time Source Procedure Growth Status 03/02/17 14:50 Nasal Nares MRSA Culture - Final NO METHICILLIN RESISTANT STAPH AUREUS... Complete Intake and Output 03/03/17 03/04/17 19:00 07:00 Intake Total 1350 ml 1175 ml Output Total 0 ml Balance 1350 ml 1175 ml IV Total 1350 ml 1175 ml Output Estimated Blood Loss 0 ml # Voids 3 3 # Bowel Movements 2 Objective Physical Exam General: No acute distress, awake and alert HEENT: NCAT, sclera anicteric, PERRL, EOMI. Neck: Supple, no significant jugular venous distention, Lungs: Good inspiratory effort, no accessory muscle use, clear to auscultation bilaterally, no Wheeze or Rales. Heart: Regular rate and rhythm, normal S1/S2, no murmurs/gallops Abdomen: soft, epigastric tenderness, nondistended. Normoactive bowel sounds. / Rectal: Refused and deferred. Extremities: No Cyanosis , clubbing or edema. Neuro: A&O x 3, Able to move all extremities Skin: warm, no rashes or lesions Psych: Normal mood and affect Assessment/Plan Assessment/Plan severe anemia due to GI Bleeding Alcoholism Plan Transfuse 1 U PRBC Monitor Labs PPI GI recommendations Kalin Burton MD Mar 04, 2017 20:08
[2017-03-04] MEDS ORDERED: Miralax 17gm pkt ORAL PRN (21:00)
[2017-03-05] VITALS: BP 101/68
[2017-03-05 04:00] VITALS: BP 108/65
[2017-03-05] MEDS: Sucralfate 1gm tab ORAL SCH ×2 (05:27→10:01)
[2017-03-05 07:21] LABS: MEAN CORPUSCULAR HEMOGLOBIN 31.6 PG (27.0-31.0); MEAN CORPUSCULAR HGB CONC 34.5 G/DL (32.0-36.0); MEAN CORPUSCULAR VOLUME 92 FL (80-99); MEAN PLATELET VOLUME 6.5 FL (6.5-10.1); PLATELET COUNT 215 K/UL (150-450); RED CELL DISTRIBUTION WIDTH 12.4 % (11.6-14.8)
[2017-03-05 07:51] VITALS: BP 109/55
[2017-03-05 08:03] LABS: BAND NEUTROPHILS % (MANUAL) 0 % (0-8); BASOPHILS % (MANUAL) 0 % (0-2); EOSINOPHILS % (MANUAL) 5 % (0-3); HYPOCHROMASIA 1+; LYMPHOCYTES % (MANUAL) 42 % (20-45); NEUTROPHILS % (MANUAL) 49 % (45-75); PLATELET ESTIMATE ADEQUATE; PLATELET MORPHOLOGY NORMAL; TOTAL CELLS COUNTED 100
[2017-03-05] MEDS: Pantoprazole Inj IV SCH (08:36)
--- NOTE | 2017-03-05 09:44 | General Progress Note ---
Assessment/Plan Problem List: (1) Anemia ICD Codes: D64.9 - Anemia, unspecified SNOMED: 600012312 (2) Gastrointestinal hemorrhage ICD Codes: K92.2 - Gastrointestinal hemorrhage, unspecified SNOMED: 96365512 Assessment/Plan advance diet stable H&H no recurrent bleed ok to dc with protonix and carafate Subjective ROS Limited/Unobtainable: Yes Allergies: Coded Allergies: No Known Allergies (Unverified , 03/02/17) Subjective no event Objective Last 24 Hour Vital Signs Date Time Temp Pulse Resp B/P Pulse Ox O2 Delivery O2 Flow Rate FiO2 03/05/17 07:51 97.0 73 18 109/55 100 Room Air 03/05/17 04:00 97.3 70 18 108/65 98 Room Air 03/05/17 00:00 97.9 18 101/68 99 Room Air 03/04/17 20:00 97.8 77 18 115/63 100 Room Air 03/04/17 16:13 97.5 71 20 112/61 100 Room Air 03/04/17 12:00 96.8 74 22 123/63 99 Room Air 03/04/17 12:00 74 Intake and Output 03/04/17 03/05/17 19:00 07:00 Intake Total 1825 ml 1275 ml Balance 1825 ml 1275 ml Intake Oral 650 ml 200 ml IV Total 875 ml 1075 ml Blood Product 300 ml # Voids 4 3 Laboratory Tests 03/05/17 05:30: White Blood Count 5.0, Red Blood Count 2.50L, Hemoglobin 7.9L, Hematocrit 22.9L , Mean Corpuscular Volume 92, Mean Corpuscular Hemoglobin 31.6H, Mean Corpuscular Hemoglobin Concent 34.5, Red Cell Distribution Width 12.4, Platelet Count 215, Mean Platelet Volume 6.5, Neutrophils (%) (Auto) , Lymphocytes (%) ( Auto) , Monocytes (%) (Auto) , Eosinophils (%) (Auto) , Basophils (%) (Auto) , Differential Total Cells Counted 100, Neutrophils % (Manual) 49, Lymphocytes % ( Manual) 42, Monocytes % (Manual) 4, Eosinophils % (Manual) 5H, Basophils % ( Manual) 0, Band Neutrophils 0, Platelet Estimate Adequate, Platelet Morphology Normal, Hypochromasia 1+ Height (Feet): 5 Height (Inches): 5.00 Weight (Pounds): 145 General Appearance: no apparent distress EENT: normal ENT inspection Neck: supple Cardiovascular: normal rate Respiratory/Chest: lungs clear Abdomen: normal bowel sounds, non tender, soft Extremities: non-tender [place] [place] Mar 05, 2017 09:44
[2017-03-05] MEDS: D5NS 1,000 ML IV SCH (10:00)
--- NOTE | 2017-03-05 10:22 | Consultation ---
History of Present Illness General Date patient seen: Mar 05, 2017 Time patient seen: 09:00 Chief Complaint: Gastrointestinal Bleed Referring physician: dr Burton Reason for Consultation: inpatient management Present Illness HPI 26-year-old male presented after increased emesis patient reported vomiting blood. the patient admitted to recent heavy drinking of alcohol admitted to long history of heavy drinking the patient was noted be hypotensive by EMS and was started on IV fluids , currently BP stable patient noted to be severely anemic in ED , no leucocytosis lipase and LFT within normal limits serum alcohol level less than 10 patient was given IVF, IV Protonix in ED and was admitted for further management already seen and evaluated by GI s/p EGD - 7.9/.9 this am started on diet . Allergies: Coded Allergies: No Known Allergies (Unverified , 03/02/17) Patient History Healthcare decision maker Resuscitation status Full Code Advanced Directive on File Past Medical/Surgical History Past Medical/Surgical History: (1) ETOH abuse Review of Systems Constitutional: Reports: no symptoms Eye: Reports: no symptoms ENT: Reports: no symptoms Respiratory: Reports: no symptoms Cardiovascular: Reports: no symptoms Gastrointestinal: Reports: see HPI Genitourinary: Reports: no symptoms Musculoskeletal: Reports: no symptoms Skin: Reports: no symptoms Psychiatric: Reports: no symptoms Neurological: Reports: no symptoms Endocrine: Reports: no symptoms Hematologic/Lymphatic: Reports: no symptoms Physical Exam General Appearance: no apparent distress, other - awake, alert, shaking Belgian speaking young male Lines, tubes and drains: peripheral HEENT: normocephalic, atraumatic, anicteric, mucous membranes moist, PERRL Neck: non-tender, supple, normal inspection Respiratory/Chest: chest wall non-tender, lungs clear, normal breath sounds, no respiratory distress, no accessory muscle use Cardiovascular/Chest: normal peripheral pulses, normal rate, regular rhythm, no JVD Abdomen: normal bowel sounds, non tender, soft Extremities: normal range of motion, normal inspection, no calf tenderness, normal capillary refill, no edema Skin Exam: warm/dry Neurologic: spool winder II-XII grossly normal, no motor/sensory deficits, alert, responsive, other - shaking, hand tremors Musculoskeletal: normal muscle bulk Last 24 Hour Vital Signs Date Time Temp Pulse Resp B/P Pulse Ox O2 Delivery O2 Flow Rate FiO2 03/05/17 07:51 97.0 73 18 109/55 100 Room Air 03/05/17 04:00 97.3 70 18 108/65 98 Room Air 03/05/17 00:00 97.9 18 101/68 99 Room Air 03/04/17 20:00 97.8 77 18 115/63 100 Room Air 03/04/17 16:13 97.5 71 20 112/61 100 Room Air 03/04/17 12:00 96.8 74 22 123/63 99 Room Air 03/04/17 12:00 74 Intake and Output 03/04/17 03/05/17 19:00 07:00 Intake Total 1825 ml 1275 ml Balance 1825 ml 1275 ml Intake Oral 650 ml 200 ml IV Total 875 ml 1075 ml Blood Product 300 ml # Voids 4 3 Laboratory Tests Test 03/05/17 05:30 White Blood Count 5.0 K/UL (4.8-10.8) Red Blood Count 2.50 M/UL (4.70-6.10) L Hemoglobin 7.9 G/DL (14.2-18.0) L Hematocrit 22.9 % (42.0-52.0) L Mean Corpuscular Volume 92 FL (80-99) Mean Corpuscular Hemoglobin 31.6 PG (27.0-31.0) H Mean Corpuscular Hemoglobin Concent 34.5 G/DL (32.0-36.0) Red Cell Distribution Width 12.4 % (11.6-14.8) Platelet Count 215 K/UL (150-450) Mean Platelet Volume 6.5 FL (6.5-10.1) Neutrophils (%) (Auto) % (45.0-75.0) Lymphocytes (%) (Auto) % (20.0-45.0) Monocytes (%) (Auto) % (1.0-10.0) Eosinophils (%) (Auto) % (0.0-3.0) Basophils (%) (Auto) % (0.0-2.0) Differential Total Cells Counted 100 Neutrophils % (Manual) 49 % (45-75) Lymphocytes % (Manual) 42 % (20-45) Monocytes % (Manual) 4 % (1-10) Eosinophils % (Manual) 5 % (0-3) H Basophils % (Manual) 0 % (0-2) Band Neutrophils 0 % (0-8) Platelet Estimate Adequate Platelet Morphology Normal Hypochromasia 1+ Height (Feet): 5 Height (Inches): 5.00 Weight (Pounds): 145 Medications Current Medications Medications (Trade) Dose Ordered Sig/Jorgito Route PRN Reason Start Time Stop Time Status Last Admin Dose Admin Acetaminophen (Tylenol) 650 mg Q4H PRN ORAL fever 03/04/17 15:30 04/03/17 15:29 Al Hydroxide/Mg Hydroxide (Mylanta II) 30 ml Q6H PRN ORAL dyspepsia 03/04/17 15:30 04/03/17 15:29 Chlordiazepoxide (Librium) 25 mg Q6H PRN ORAL Agitation 03/04/17 14:30 03/11/17 14:29 Dextrose (Dextrose 50%) STAT PRN IV Hypoglycemia 03/04/17 15:00 04/03/17 14:59 Dextrose/Sodium Chloride 1,000 ml @ 100 mls/hr Q10H IV 03/04/17 14:30 04/03/17 14:29 03/05/17 10:00 Diphenhydramine HCl (Benadryl) 25 mg Q6H PRN ORAL Itching/Pruritis 03/04/17 15:00 04/03/17 14:59 Folic Acid 1 mg/ Magnesium Sulfate 2000 mg/ Multivitamins 10 ml/Sodium Chloride 1,014.2 ml @ 125 mls/ hr Q24H IV 03/05/17 13:00 04/04/17 12:59 Lorazepam (Ativan 2mg/ml 1ml) 1 mg Q4H PRN IV For Anxiety 03/04/17 15:00 03/11/17 14:59 Morphine Sulfate (Morphine Sulfate) 2 mg Q4H PRN IVP severe Pain (Pain Scale 7-10) 03/04/17 15:00 03/11/17 14:59 Nitroglycerin (Ntg) 0.4 mg Q5M X 3 DOSES PRN SL Prn Chest Pain 03/04/17 14:00 04/03/17 13:59 Ondansetron HCl (Zofran) 4 mg Q6H PRN IVP Nausea & Vomiting 03/04/17 15:00 04/03/17 14:59 Pantoprazole (Protonix) 40 mg EVERY 12 HOURS IV 03/04/17 21:00 04/03/17 20:59 03/05/17 08:36 Polyethylene Glycol (Miralax) 17 gm HSPRN PRN ORAL Constipation 03/04/17 21:00 04/03/17 20:59 Sucralfate (Carafate) 1 gm 0600,1100,1600,2000 ORAL 03/04/17 16:00 04/03/17 15:59 03/05/17 10:01 Temazepam (Restoril) 15 mg HSPRN PRN ORAL Insomnia 03/04/17 21:00 03/11/17 20:59 Thiamine HCl/ Dextrose (Vitamin B1/D5W) 56 ml @ 112 mls/hr Q24H IVPB 03/05/17 13:00 04/04/17 12:59 Assessment/Plan Assessment/Plan ASSESSMENT upper GI bleeding , most probably from a Dieulafoy lesion status post hemoclip x1. 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
[2017-03-05 11:53] VITALS: BP 100/67
[2017-03-05] MEDS ORDERED: OMEPRAZOLE40 M1 ORAL (13:00)
[2017-03-05] MEDS ORDERED: Folic Acid 1 MG, Magnesium Sulfate 2,000 MG, Multivitamin - 12 Injection 10 ML in NS w/... IV SCH (13:00)
[2017-03-05] MEDS ORDERED: Thiamine HCl 100 MG in D5W 55 ML IVPB SCH (13:00)
--- NOTE | 2017-03-05 13:08 | Internal Med Progress Note ---
Subjective Physician Name Kalin Burton Attending Physician Kalin Burton MD Current Medications Medications (Trade) Dose Ordered Sig/Jorgito Route PRN Reason Start Time Stop Time Status Last Admin Dose Admin Acetaminophen (Tylenol) 650 mg Q4H PRN ORAL fever 03/04/17 15:30 04/03/17 15:29 Al Hydroxide/Mg Hydroxide (Mylanta II) 30 ml Q6H PRN ORAL dyspepsia 03/04/17 15:30 04/03/17 15:29 Chlordiazepoxide (Librium) 25 mg Q6H PRN ORAL Agitation 03/04/17 14:30 03/11/17 14:29 Dextrose (Dextrose 50%) STAT PRN IV Hypoglycemia 03/04/17 15:00 04/03/17 14:59 Dextrose/Sodium Chloride 1,000 ml @ 100 mls/hr Q10H IV 03/04/17 14:30 04/03/17 14:29 03/05/17 10:00 Diphenhydramine HCl (Benadryl) 25 mg Q6H PRN ORAL Itching/Pruritis 03/04/17 15:00 04/03/17 14:59 Folic Acid 1 mg/ Magnesium Sulfate 2000 mg/ Multivitamins 10 ml/Sodium Chloride 1,014.2 ml @ 125 mls/ hr Q24H IV 03/05/17 13:00 04/04/17 12:59 Lorazepam (Ativan 2mg/ml 1ml) 1 mg Q4H PRN IV For Anxiety 03/04/17 15:00 03/11/17 14:59 Morphine Sulfate (Morphine Sulfate) 2 mg Q4H PRN IVP severe Pain (Pain Scale 7-10) 03/04/17 15:00 03/11/17 14:59 Nitroglycerin (Ntg) 0.4 mg Q5M X 3 DOSES PRN SL Prn Chest Pain 03/04/17 14:00 04/03/17 13:59 Ondansetron HCl (Zofran) 4 mg Q6H PRN IVP Nausea & Vomiting 03/04/17 15:00 04/03/17 14:59 Pantoprazole (Protonix) 40 mg EVERY 12 HOURS IV 03/04/17 21:00 04/03/17 20:59 03/05/17 08:36 Polyethylene Glycol (Miralax) 17 gm HSPRN PRN ORAL Constipation 03/04/17 21:00 04/03/17 20:59 Sucralfate (Carafate) 1 gm 0600,1100,1600,2000 ORAL 03/04/17 16:00 04/03/17 15:59 03/05/17 10:01 Temazepam (Restoril) 15 mg HSPRN PRN ORAL Insomnia 03/04/17 21:00 03/11/17 20:59 Thiamine HCl/ Dextrose (Vitamin B1/D5W) 56 ml @ 112 mls/hr Q24H IVPB 03/05/17 13:00 04/04/17 12:59 Allergies: Coded Allergies: No Known Allergies (Unverified , 03/02/17) Subjective awake, alert, responsive,No dark stool, RBC: 7.9 Objective Last Vital Signs Date Time Temp Pulse Resp B/P Pulse Ox O2 Delivery O2 Flow Rate FiO2 03/05/17 11:53 97.0 80 18 100/67 99 Room Air Laboratory Tests Test 03/05/17 05:30 White Blood Count 5.0 K/UL (4.8-10.8) Red Blood Count 2.50 M/UL (4.70-6.10) L Hemoglobin 7.9 G/DL (14.2-18.0) L Hematocrit 22.9 % (42.0-52.0) L Mean Corpuscular Volume 92 FL (80-99) Mean Corpuscular Hemoglobin 31.6 PG (27.0-31.0) H Mean Corpuscular Hemoglobin Concent 34.5 G/DL (32.0-36.0) Red Cell Distribution Width 12.4 % (11.6-14.8) Platelet Count 215 K/UL (150-450) Mean Platelet Volume 6.5 FL (6.5-10.1) Neutrophils (%) (Auto) % (45.0-75.0) Lymphocytes (%) (Auto) % (20.0-45.0) Monocytes (%) (Auto) % (1.0-10.0) Eosinophils (%) (Auto) % (0.0-3.0) Basophils (%) (Auto) % (0.0-2.0) Differential Total Cells Counted 100 Neutrophils % (Manual) 49 % (45-75) Lymphocytes % (Manual) 42 % (20-45) Monocytes % (Manual) 4 % (1-10) Eosinophils % (Manual) 5 % (0-3) H Basophils % (Manual) 0 % (0-2) Band Neutrophils 0 % (0-8) Platelet Estimate Adequate Platelet Morphology Normal Hypochromasia 1+ Microbiology Date/Time Source Procedure Growth Status 03/02/17 14:50 Nasal Nares MRSA Culture - Final NO METHICILLIN RESISTANT STAPH AUREUS... Complete 03/02/17 14:50 Rectum VRE Culture - Final NO VANCOMYCIN RESISTANT ENTEROCOCCUS ... Complete Intake and Output 03/04/17 03/05/17 19:00 07:00 Intake Total 1825 ml 1375 ml Balance 1825 ml 1375 ml Intake Oral 650 ml 200 ml IV Total 875 ml 1175 ml Blood Product 300 ml # Voids 4 3 Objective Physical Exam General: No acute distress, awake and alert HEENT: NCAT, sclera anicteric, PERRL, EOMI. Neck: Supple, no significant jugular venous distention, Lungs: Good inspiratory effort, no accessory muscle use, clear to auscultation bilaterally, no Wheeze or Rales. Heart: Regular rate and rhythm, normal S1/S2, no murmurs/gallops Abdomen: soft, No epigastric tenderness, nondistended. Normoactive bowel sounds. / Rectal: Refused and deferred. Extremities: No Cyanosis , clubbing or edema. Neuro: A&O x 3, Able to move all extremities Skin: warm, no rashes or lesions Psych: Normal mood and affect Assessment/Plan Assessment/Plan severe anemia due to GI Bleeding Alcoholism Plan Monitor Labs PPI GI recommendations DC Home today EGD: SUMMARY FINDINGS: 1. Gastritis status post biopsy. 2. Upper gastrointestinal bleeding, most probably from a Dieulafoy lesion right below the gastroesophageal junction status post hemoclip x1. Kalin Burton MD Mar 05, 2017 13:08
[2017-03-05] MEDS ORDERED: D5NS 1000ml IV ONE (14:41)
--- NOTE | 2017-03-06 14:40 | Discharge Summary ---
Discharge Summary Hospital Course Date of Admission Mar 02, 2017 at 15:34 Date of Discharge Mar 05, 2017 at 14:42 Admitting Diagnosis upper gi bleed HPI Edmar Brown is a 26 year old male who was admitted on Mar 02, 2017 at 15:34 for Upper Gastrointestinal Bleed Hospital Course dc summary #[id number] Discharge Medications New Medications: Omeprazole (Omeprazole) 40 Mg Capsule.dr 40 MG ORAL DAILY for 30 Days, CAP Discharge Condition Upon Discharge: stable Discharge Disposition Patient was discharged to Home (01) Discharge Diagnoses: Cesario ([facility]),Sneha [place] Mar 06, 2017 14:40
--- NOTE | 2017-03-07 00:31 | Discharge Summary 2 SIG ---
DATE OF ADMISSION: 03/02/2017 DATE OF DISCHARGE: 03/05/2017 CONSULTANTS: 1. Albaro Bledsoe M.D. 2. Brenda Gillespie M.D. BRIEF HOSPITAL COURSE: 26-year-old male presented after frequent episodes of emesis. The patient reported vomiting blood. The patient was reported heavy drinking of alcohol as well as the long history of heavy drinking in the past. The patient was noted to be hypotensive by technical producer and was started on the IV fluids. Blood pressure was stable upon arrival to the emergency department. The patient was noted to be severely anemic in the emergency department, but no leukocytosis. Lipase and LFTs were within normal limits. Serum alcohol level was less than 10. The patient was started on IV fluids. Given IV Protonix in the emergency department The patient was admitted for further management. Patient was seen by the GI doctor, status post EGD. EGD revealed Dieulafoy lesion right below the gastroesophageal junction and status post hemoclip x1. EGD also demonstrated findings consistent with gastritis. Pathology results of the stomach biopsy revealed moderate active chronic gastritis, present Helicobacter pylori organism, no intestinal metaplasia or dysplasia. The patient was started initially on liquid diet and advanced as tolerated. The lowest hemoglobin- 6.5 and hematocrit -19.2. After transfusion of three units of packed red blood cells, hemoglobin - 7.9 and hematocrit -22.9. The patient was able to tolerate diet. The patient was afebrile. LFTs were stable. Antiemetic was provided as needed. GI did not want further transfusion for hemoglobin 7.9 , and cleared the patient for discharge. Initially, the patient was started on the IV fluids with banana bag and Librium as needed. Serum alcohol level was less than 10, though the patient did experience hand trembling and shaking. Venous duplex of bilateral lower extremity was negative. Supplemental oxygen was provided as needed to keep saturation above 92%. Pulse oximetry was stable on room air. GI prophylaxis provided along with Carafate. Magnesium and lipase were within normal limits. The patient was stable for discharge. Followup with the primary medical doctor. The patient was counseled on alcohol cessation. DISCHARGE DIAGNOSES: 1. Upper gastrointestinal bleeding, most probably from Dieulafoy lesion, status post hemoclip x1. 2. Anemia. 3. Acute alcohol withdrawal. 4. Status post blood transfusion. 5. Status post esophagogastroduodenoscopy with biopsy. 6. Gastritis due to alcohol abuse. 7. Status post hemoclip x1. 8. Helicobacter pylori infection. 9. Alcohol abuse. DISCHARGE MEDICATIONS: See medication reconciliation. DISCHARGE INSTRUCTIONS: The patient was discharged home. FOLLOWUP: Followup with the primary medical doctor and GI. The patient will be contacted by GI for treatment of H. pylori. Kalin Burton M.D. Sneha BatesRochester Regional HealthGirish N.PLinda DR: WILIAN JOB#: [id number] CC: [email or web address]
== END 2017-03-05 14:42 | disposition home or self-care (01) | DRG 241 ==
LOC: EDBD 13:41 → EMR 14:40 → 2W 15:34 → EDBEDREQ 15:54 → 4W 03-04 15:25
PROC: 30233N1 Transfusion of Nonautologous Red Blood Cells into Peripheral Vein, Percutaneous Approach (ICD-10-PCS; 2017-03-02)
PROC: 0DB68ZX Excision of Stomach, Via Natural or Artificial Opening Endoscopic, Diagnostic (ICD-10-PCS; principal; 2017-03-03 12:38)
PROC: 0W3P8ZZ Control Bleeding in Gastrointestinal Tract, Via Natural or Artificial Opening Endoscopic (ICD-10-PCS; 2017-03-03 12:38)
DX: K31.82 Dieulafoy lesion (hemorrhagic) of stomach and duodenum (principal); D62 Acute posthemorrhagic anemia; F10.239 Alcohol dependence with withdrawal, unspecified; K29.20 Alcoholic gastritis without bleeding; B96.81 Helicobacter pylori [H. pylori] as the cause of diseases classified elsewhere
CPT/HCPCS: 36415; 80053; 80329; 82150; 83690; 83735; 84100; 85007; 85025; 85610; 85730; 86850; 86900; 86901; 86920; 87081; 93005; 93970; 94003; 94150